=== PATIENT | male | born 1955 | race African-American/Black ===

== ENCOUNTER → 2019-02-19 | Outpatient (CLI) | payer OTHER ==
[~2019-02-19] MED LIST: BP Med PO; GABA300C10 PO
[2019-02-19 09:27] LABS: MICROSCOPIC NOT IND
[2019-02-19 09:37] LABS: CULTURE INDICATED? NO
[2019-02-19 09:37] LABS: ALANINE AMINOTRANSFERASE 42 U/L (12-78); ALBUMIN 3.7 g/dL (3.4-5.0); ANION GAP 4 mmol/L (5-15); CALCIUM 9.9 mg/dL (8.5-10.1); CHLORIDE 104 mmol/L (98-107); CREATININE 1.19 mg/dL (0.7-1.3)
[2019-02-19 09:39] LABS: ALKALINE PHOSPHATASE 117 U/L (45-117); BILIRUBIN,TOTAL 0.3 mg/dL (0.2-1.0); TOTAL PROTEIN 8.1 g/dL (6.4-8.2)
[2019-02-19 09:48] LABS: BASOPHILS # (AUTO) 0.03 x10^3/uL (0-0.1); BASOPHILS % (AUTO) 1 % (0-1); EOSINOPHILS % (AUTO) 2 % (1-7); LYMPHOCYTES # (AUTO) 1.76 x10^3/uL (1-3.4); LYMPHOCYTES % (AUTO) 28 % (22-44); MD NO; MEAN CORPUSCULAR HEMOGLOBIN 28.6 pg (27.5-34.5); MEAN CORPUSCULAR HGB CONC 31.6 g/dL (33.2-36.2); MEAN CORPUSCULAR VOLUME 90.5 fL (81-97); MEAN PLATELET VOLUME 9.1 fL (7.4-10.4); MONOCYTES # (AUTO) 0.56 x10^3/uL (0.2-0.8); MONOCYTES % (AUTO) 9 % (2-9); NEUTROPHILS # (AUTO) 3.82 x10^3/uL (1.8-6.8); NEUTROPHILS % (AUTO) 61 % (42-75); PLATELET COUNT 381 x10^3/uL (130-400); RED BLOOD COUNT 5.07 x10^6/uL (4.38-5.82); RED CELL DISTRIBUTION WIDTH 14.3 % (9.4-14.8)
[2019-02-19 09:54] LABS: INTERNATIONAL NORMALIZED RATIO 0.99 (0.93-1.1); PROTHROMBIN TIME 10.4 Seconds (9.6-11.5)
== END | disposition home or self-care (01) ==
LOC: STAR 07:46
PROVIDERS: ATTEND Neurological Surgery
DX: Z01.811 Encounter for preprocedural respiratory examination (principal); Z01.812 Encounter for preprocedural laboratory examination; M47.817 Spondylosis without myelopathy or radiculopathy, lumbosacral region; M16.0 Bilateral primary osteoarthritis of hip; G95.89 Other specified diseases of spinal cord
CPT/HCPCS: 36415; 71046; 72110; 80053; 81003; 85025; 85610; 85730; 93005

== ENCOUNTER 2019-02-25 10:30 | Inpatient (IN) | payer MEDICARE, OTHER ==
[2019-02-19 08:47] VITALS: BP 122/84
[~2019-02-25] VITALS: Ht 175.3 cm; Wt 86.3 kg
[2019-02-25] MEDS ORDERED: ACETAMINOPHEN 500 MG TABLET PO ONE ×2 (11:00→16:30)
[2019-02-25] MEDS ORDERED: GABAPENTIN 300 MG CAPSULE PO ONE ×2 (11:00→16:30)
[2019-02-25] MEDS ORDERED: LISI1TAB7 PO (11:39)
[2019-02-25] MEDS ORDERED: LACTATED RINGERS 1,000 ML IV SCH (12:00)
[2019-02-25] MEDS ORDERED: BUPIVACAINE/PF 0.25% ONE ×2 (17:23→17:24)
[2019-02-25] MEDS ORDERED: EPINEPHRINE 1 MG/ML, 1ML ONE (17:24)
[2019-02-25] MEDS ORDERED: BACITRACIN OINT 500U/GM, 15 GM ONE (17:24)
[2019-02-25] MEDS ORDERED: THROMBIN 5,000 UNIT VIAL TP ONE (17:24)
[2019-02-25] MEDS ORDERED: BACITRACIN 50,000 UNIT ONE (17:24)
[2019-02-25] MEDS ORDERED: DIPHENHYDRAMINE 50 MG/ML, 1ML IVPush PRN ×2 (17:30→22:30)
[2019-02-25] MEDS ORDERED: MEPERIDINE/PF 25MG/0.5ML IVPush PRN (17:30)
[2019-02-25] MEDS ORDERED: hydrALAzine 20 MG/ML, 1ML IV PRN (17:30)
[2019-02-25] MEDS ORDERED: OXYcodone 5 MG/5 ML ORAL.SOL UDC PO PRN (17:30)
[2019-02-25] MEDS ORDERED: HYDROmorphone 2 MG/ML, 1ML IVPush PRN ×2 (17:30→22:30)
[2019-02-25] MEDS ORDERED: PROCHLORPERAZINE 5 MG/ML, 2ML IV PRN (17:30)
[2019-02-25] MEDS ORDERED: LABETALOL 5 MG/ML SYRINGE IV PRN (17:30)
[2019-02-25] MEDS ORDERED: METOPROLOL 1 MG/ML, 5ML IV PRN (17:30)
[2019-02-25] MEDS ORDERED: PROMETHAZINE 25 MG/ML, 1ML IV PRN (17:30)
[2019-02-25] MEDS ORDERED: HALOPERIDOL 5 MG/ML IV PRN (17:30)
[2019-02-25] MEDS ORDERED: FENTANYL PF 250 MCG/5ML ONE (18:01)
[2019-02-25] MEDS ORDERED: MIDAZOLAM 1 MG/ML, 2ML ONE (18:01)
[2019-02-25] MEDS ORDERED: CEFAZOLIN 1,000 MG ONE ×3 (18:05→19:56)
[2019-02-25] MEDS ORDERED: PROPOFOL 10 MG/ML, 20ML ONE ×2 (18:05→19:56)
[2019-02-25] MEDS ORDERED: DEXAMETHASONE 4 MG/ML, 1ML ONE ×3 (18:05→19:56)
[2019-02-25] MEDS ORDERED: EPHEDRINE 50 MG/ML, 1ML ONE (18:08)
[2019-02-25] MEDS ORDERED: VASOPRESSIN 20 UNIT/ML, 1ML ONE (18:08)
[2019-02-25] MEDS ORDERED: GLYCOPYRROLATE 0.2MG/1ML, 5ML ONE (19:56)
[2019-02-25] MEDS ORDERED: ONDANSETRON 2MG/ML, 2ML ONE (19:56)
[2019-02-25] MEDS ORDERED: ROCURONIUM 10MG/ML,5ML ONE ×2 (19:56)
[2019-02-25] MEDS ORDERED: SUCCINYLCHOLINE 20 MG/ML, 10ML ONE (19:56)
[2019-02-25] MEDS ORDERED: NEOSTIGMINE 1 MG/ML, 10ML ONE (19:56)
[2019-02-25] MEDS ORDERED: OXYcodone 5 MG/5 ML ORAL.SOL UDC ONE (20:08)
[2019-02-25] MEDS ORDERED: FENTANYL PF 100 MCG/2ML ONE (20:08)
[2019-02-25] MEDS: FENTANYL PF 100 MCG/2ML IV PRN ×2 (20:15→20:21)
[2019-02-25] MEDS ORDERED: HYDROmorphone 2 MG/ML, 1ML ONE (20:32)
[2019-02-25 21:00] VITALS: BP 143/83
[2019-02-25] MEDS ORDERED: PHARMACY MAY ADJ FOR RENAL FX MC PRN (22:00)
[2019-02-25] MEDS ORDERED: OXYC5TAB3 PO (22:27)
[2019-02-25] MEDS ORDERED: METH750T87 PO (22:28)
[2019-02-25] MEDS ORDERED: BISACODYL 10 MG SUPP PR PRN (22:30)
[2019-02-25] MEDS ORDERED: MAGNESIUM HYDROXIDE 8%, 30ML UDC PO PRN (22:30)
[2019-02-25] MEDS ORDERED: DIPHENHYDRAMINE 50 MG/ML, 1ML IM PRN (22:30)
[2019-02-25] MEDS ORDERED: DIPHENHYDRAMINE 50 MG CAPSULE PO PRN (22:30)
[2019-02-25] MEDS ORDERED: PROMETHAZINE 25 MG/ML, 1ML IM PRN (22:30)
[2019-02-25] MEDS ORDERED: METHOCARBAMOL 750 MG TABLET PO PRN (22:30)
[2019-02-25] MEDS ORDERED: CEFAZOLIN PMX 1GM/50ML 50 ML IVPB SCH (23:00)
[2019-02-25] MEDS: LABETALOL 5 MG/ML SYRINGE IV SCH (23:00)
[2019-02-26 00:05] VITALS: BP 117/64
[2019-02-26] MEDS: LABETALOL 5 MG/ML SYRINGE IV SCH ×4 (02:01→20:48)
[2019-02-26] MEDS: NS + 20MEQ KCL 1,000 ML IV SCH ×3 (02:44→20:48)
[2019-02-26] MEDS: CEFAZOLIN PMX 1GM/50ML 50 ML IVPB SCH ×2 (02:44→10:47)
[2019-02-26] MEDS: HYDROcodone/APAP 5/325 TABLET PO PRN ×2 (03:09→07:59)
[2019-02-26 04:03] VITALS: BP 124/87
[2019-02-26 07:50] VITALS: BP 113/72
[2019-02-26] MEDS: HYDROCHLOROTHIAZIDE 25 MG TABLET PO SCH (07:59)
[2019-02-26] MEDS: LISINOPRIL 20 MG TABLET PO SCH (07:59)
[2019-02-26] MEDS: SENNA/DOCUSATE TABLET PO SCH (07:59)
[2019-02-26] MEDS: GABAPENTIN 300 MG CAPSULE PO SCH ×3 (07:59→20:47)
[2019-02-26] MEDS: OXYcodone/APAP 5/325MG TABLET PO PRN ×3 (12:12→20:47)
[2019-02-26 15:40] VITALS: BP 95/61
[2019-02-26 20:08] VITALS: BP 112/74
[2019-02-26] MEDS: ENOXAPARIN 40 MG/0.4 ML SQ SCH (20:48)
[2019-02-27 01:47] VITALS: BP 99/63
[2019-02-27] MEDS: OXYcodone/APAP 5/325MG TABLET PO PRN ×5 (04:07→20:03)
[2019-02-27 08:05] VITALS: BP 105/70
[2019-02-27] MEDS: NS + 20MEQ KCL 1,000 ML IV SCH ×3 (08:30→23:19)
[2019-02-27] MEDS: GABAPENTIN 300 MG CAPSULE PO SCH ×3 (08:41→20:03)
[2019-02-27] MEDS: LISINOPRIL 20 MG TABLET PO SCH (08:42)
[2019-02-27] MEDS: HYDROCHLOROTHIAZIDE 25 MG TABLET PO SCH (08:42)
[2019-02-27] MEDS: SENNA/DOCUSATE TABLET PO SCH (08:43)
[2019-02-27] MEDS: ONDANSETRON 2MG/ML, 2ML IV PRN (12:05)
[2019-02-27 13:56] VITALS: BP 110/74
[2019-02-27] MEDS: LABETALOL 5 MG/ML SYRINGE IV SCH ×2 (14:56→23:00)
[2019-02-27 19:50] VITALS: BP 91/62
[2019-02-27] MEDS: ENOXAPARIN 40 MG/0.4 ML SQ SCH (20:03)
[2019-02-28] MEDS: OXYcodone/APAP 5/325MG TABLET PO PRN ×4 (00:11→15:18)
[2019-02-28 00:59] VITALS: BP 103/66
[2019-02-28] MEDS: LABETALOL 5 MG/ML SYRINGE IV SCH ×2 (05:18→15:00)
[2019-02-28 05:47] LABS: CREATININE 1.29 mg/dL (0.7-1.3)
[2019-02-28 07:12] VITALS: BP 112/73
[2019-02-28] MEDS ORDERED: ALUMINUM/MAG/SIMETHICONE 30 ML UDC PO PRN (08:00)
[2019-02-28] MEDS: ONDANSETRON 2MG/ML, 2ML IV PRN (08:13)
[2019-02-28] MEDS: SENNA/DOCUSATE TABLET PO SCH (08:56)
[2019-02-28] MEDS: HYDROCHLOROTHIAZIDE 25 MG TABLET PO SCH (08:56)
[2019-02-28] MEDS: GABAPENTIN 300 MG CAPSULE PO SCH ×2 (08:57→15:18)
[2019-02-28] MEDS: LISINOPRIL 20 MG TABLET PO SCH (08:57)
[2019-02-28 13:56] VITALS: BP 102/66
[2019-02-28] MEDS: NS + 20MEQ KCL 1,000 ML IV SCH (14:30)
[2019-02-28 17:01] VITALS: BP 122/79
== END 2019-02-28 18:12 | DRG 519 ==
LOC: OR 10:30 → 4NOR 21:37 → OR 22:37
PROVIDERS: ADMIT Neurological Surgery; ATTEND Neurological Surgery
PROC: 00NY0ZZ Release Lumbar Spinal Cord, Open Approach (ICD-10-PCS; 2019-02-25)
PROC: 03HY32Z Insertion of Monitoring Device into Upper Artery, Percutaneous Approach (ICD-10-PCS; 2019-02-25)
PROC: 01NB0ZZ Release Lumbar Nerve, Open Approach (ICD-10-PCS; principal; 2019-02-25 18:00)
DX: M48.062 Spinal stenosis, lumbar region with neurogenic claudication (principal); G95.29 Other cord compression; I10 Essential (primary) hypertension; F17.210 Nicotine dependence, cigarettes, uncomplicated; M51.16 Intervertebral disc disorders with radiculopathy, lumbar region; M47.26 Other spondylosis with radiculopathy, lumbar region; M47.896 Other spondylosis, lumbar region; Z83.3 Family history of diabetes mellitus
CPT/HCPCS: 36415; 72100; 82565; C1729; G0378; J0171; J0690; J1100; J1170; J1650; J2250; J2405; J2704; J2710; J3010; J3480; J3490; J0330; J7120